=== PATIENT | male | born 1975 | race Caucasian/White ===

== ENCOUNTER 2022-11-24 11:57 | Day surgery (SDC) | payer BC, SELFPAY ==
--- NOTE | 2022-11-23 09:30 | P.CONAN_ITS ---
Documented by User: Eneida Winkler NP 11/23/22 09:30 HPI - Anesthesia Eval Consult details Narrative: 47yo M for Upper Endoscopy PMF[facility] Past Medical History Medical History Depression Anxiety HTN (hypertension) Surgical History Surgical History H/O laminectomy History of vasectomy Social History Social History Patient Tobacco Use Status: Never used Tobacco Use of substances other than those prescribed or required for medical reasons: No Are you DNR?: No Advance Directives: No Advance Directives Information Provided: Yes Meds Allergies Allergy/AdvReac Type Severity Reaction Status Date / Time No Known Allergies Allergy Verified 11/23/22 09:19 Home Medications Medication Instructions Recorded Confirmed Last Taken Type bupropion HCl 150 mg 24 hr tablet, mg PO 11/23/22 Unknown History extended release escitalopram oxalate 10 mg tablet mg 11/23/22 Unknown History fluoxetine 40 mg capsule mg 11/23/22 Unknown History gabapentin 300 mg capsule mg 11/23/22 Unknown History hydroxyzine pamoate 25 mg capsule mg 11/23/22 11/23/22 Unknown History Exam Exam Date and Time: November 23, 2022929 Assessment and Plan Assessment Anesthesia Assessment: Chart Reviewed Documented by User: Harriet Meadows MD 11/24/22 13:08 HPI - Anesthesia Eval Consult details Narrative: 47yo M for Colonoscopy [facility] Past Medical History Medical History Depression Anxiety HTN (hypertension) Family History Family history of problems with anesthesia: No Surgical History Surgical History H/O laminectomy History of vasectomy History of Problems with Anesthesia: No Social History Social History Patient Tobacco Use Status: Never used Tobacco Use of substances other than those prescribed or required for medical reasons: No Are you DNR?: No Advance Directives: No Advance Directives Information Provided: Yes Meds Allergies Allergy/AdvReac Type Severity Reaction Status Date / Time No Known Allergies Allergy Verified 11/23/22 09:19 Home Medications Medication Instructions Recorded Confirmed Last Taken Type bupropion HCl 150 mg 24 hr tablet, mg PO 11/23/22 Unknown History extended release escitalopram oxalate 10 mg tablet mg 11/23/22 Unknown History fluoxetine 40 mg capsule mg 11/23/22 Unknown History gabapentin 300 mg capsule mg 11/23/22 Unknown History hydroxyzine pamoate 25 mg capsule mg 11/23/22 11/23/22 Unknown History Exam Height,Weight and Vital Signs: Height 5 ft 11 in Weight 102.965 kg Vital Signs Temp Pulse Resp BP Pulse Ox O2 Del Method 11/24/22 12:23 96.5 F L 48 L 16 131/75 98 Room Air Airway Mallampati Class: I TM Dist: >3cm Neck ROM: Full Loose/Missing/Broken Teeth: No (Denies broken, loose, missing teeth) Heart: RRR Lungs: CTAB Assessment and Plan Assessment Anesthesia Assessment: Anesthesia Plan Discussed Final Anesthetic Review Family History of Problems with Anesthesia: No History of Problems with Anesthesia: No NPO: Yes ASA Class: II Final Preanesthetic Review: No Changes in Pt Med Stat, Meds/Allgs Chart Reviewed, Consent Obtained/Reviewed and Anes Risks/Benef Reviewed Patient Risk: Low Procedure Risk: Low Assessment/Block/Sedation in SS: Assess/Block/Sedation- Anesthetic Plan Anesthetic Plan: MAC: Disposition: Standard PACU
[2022-11-24 12:13] VITALS: BMI 31.7
[2022-11-24 12:23] VITALS: BP 131/75; PULSE 48; RESP 16; TEMP 35.8; O2SAT 98
[2022-11-24 12:34] VITALS: BMI 31.7
[2022-11-24] MEDS: Lactated Ringers 1,000 ML 100 ML IVCONT (12:35)
--- NOTE | 2022-11-24 12:58 | MHC.SHP ---
Pre-Procedural Eval Section A Date of Service: 11/24/22 Section B Chief Complaint: screening Details of Present Illness: see H&P no changes Relevant Family History (Specify if Yes): No Relevant Social History: None Present Medications: see Short Stay Collaborative assessment Medical History: No relevant PMH History of Previous Operations: No relevant previous surgery Allergies: Allergies Allergy/AdvReac Type Severity Reaction Status Date / Time No Known Allergies Allergy Verified 11/23/22 09:19 Review of Systems Sugical H&P ROS: Negative: Constitution, Cardiovascular, Respiratory, Neurological, Psychiatric, Hem-Onc, Allergic/Immunologic, Gastrointestinal, Genitourinary, Musculoskeletal, Integumentary, Endocrine and Eyes/Ears/Nose/Throat Exam Surgical H&P Exam: Normal: HEENT, Normal: Heart, Normal: Lungs, Normal: Extremities, Normal: Abdomen, Normal: Skin and Normal: Neurological Plan Diagnosis/Plan: Unchanged I have reviewed the history and physical and performed a pertinent physical examination on my patient. No changes have occurred unless specified. Time Spent With Patient Time: Total time managing care of this patient today ____ minutes.
--- NOTE | 2022-11-24 14:08 | PM.OP ---
Brief Operative Note Date of Service: 11/24/22 Pre-op diagnosis: screening Post-op diagnosis: same Surgeon: Simone Mata MD Anesthesia: MAC Was an [employer] used for this Procedure?: No Estimated blood loss (mL): 2 Pathology: other Condition: stable Disposition: PACU
[2022-11-24 14:12] VITALS: BP 110/70; PULSE 52; RESP 16; TEMP 36.1; O2SAT 95
[2022-11-24 14:27] VITALS: BP 120/71; PULSE 48; RESP 16; TEMP 36.1; O2SAT 98
--- NOTE | 2022-11-24 14:32 | OP_ITS ---
DATE OF SERVICE: 11/24/2022 SURGEON: Simone Mata MD INDICATIONS: Colon cancer screening. PREOPERATIVE DIAGNOSIS: POSTOPERATIVE DIAGNOSIS: PROCEDURE PERFORMED: Colonoscopy to the terminal ileum with biopsy. ESTIMATED BLOOD LOSS: COMPLICATIONS: ANESTHESIA: Monitored anesthesia care. ASSISTANTS: SPECIMENS: DESCRIPTION OF PROCEDURE: A history and physical was performed. The risks and benefits of the procedure were explained to the patient. Informed consent was obtained. The patient was placed in the left lateral decubitus position. A digital rectal exam was performed and was found to be normal. The Olympus pediatric video colonoscope was introduced into the rectum and advanced to the cecum. The cecum was identified by transillumination, palpation, and identification of ileocecal valve. Examination was performed. The scope was removed. He tolerated the procedure well and was returned to the recovery area in stable condition. FINDINGS: The terminal ileum was examined and appeared normal. The visualized colonic mucosa was normal. The quality of the prep was excellent. A single polyp measuring less than 5 mm was identified in the rectum and removed with the biopsy forceps. Retroflexed examination was normal. IMPRESSION: Colon polyp. RECOMMENDATION: Follow up the biopsy results. MD FERNANDO Perez/SANTOL / [id number]
== END 2022-11-24 15:18 | disposition home or self-care (01) ==
PROVIDERS: PCP Internal Medicine; Visit Provider Internal Medicine Gastroenterology
PROC: 0DJD8ZZ Inspection of Lower Intestinal Tract, Via Natural or Artificial Opening Endoscopic (ICD-10-PCS; CPT 45378; principal; 2022-11-24 13:00)
DX: Z12.11 Encounter for screening for malignant neoplasm of colon (principal); K62.1 Rectal polyp; I10 Essential (primary) hypertension; F41.8 Other specified anxiety disorders; Z79.899 Other long term (current) drug therapy
CPT/HCPCS: 45380; 88305; J2250